=== PATIENT | male | born 1950 | race Caucasian/White ===

== ENCOUNTER 2023-05-29 08:59 | Observation (INO) | payer MEDICARE ==
[2023-05-19 11:18] LABS: Hematocrit 40.7 % (38.8-50.0); Hemoglobin 12.9 g/dL (13.5-17.5); Mean Corpuscular HGB CONC 31.7 g/dL (32.0-36.0); Mean Corpuscular Hemoglobin 28.7 pg (27.0-33.0); Mean Corpuscular Volume 90.6 fl (81.2-95.1); Mean Platelet Volume 10.1 fl (7.4-10.4); Platelet Count 155 10x3/uL (150-450); RBC Distribution Width 14.3 % (11.5-14.5); Red Blood Cell (RBC) Count 4.49 10x6/uL (4.32-5.72); White Blood Cell (WBC) Count 7.8 10x3/uL (3.5-10.5)
[2023-05-19 11:46] LABS: Anion Gap 16 mmol/L (10-20); BUN (Urea Nitrogen) 22 mg/dL (8.4-25.7); Calc. Creatinine Clearance 111 mL/min (70-130); Calcium 8.9 mg/dL (7.8-10.44); Carbon Dioxide 24 mmol/L (23-31); Chloride 106 mmol/L (98-107); Estimated GFR 71; Glucose 144 mg/dL (83-110); INR-International Normal Ratio 1.3; Potassium 4.1 mmol/L (3.5-5.1); Prothrombin Time 14.1 sec (9.5-12.1); Sodium 142 mmol/L (136-145)
[2023-05-29] MEDS ORDERED: Heparin 25,000 units/D5W 500 ML ONE (10:07)
[2023-05-29] MEDS ORDERED: Protamine Sulfate 50 MG/5 ML VIAL ONE (10:07)
[2023-05-29] MEDS ORDERED: Heparin 10,000 UNITS/ 10 ML VIAL ONE (10:07)
[2023-05-29] MEDS ORDERED: Dehydrated Alcohol 99% 5 ML VIAL ONE (10:10)
[2023-05-29] MEDS ORDERED: Phenylephrine 10 MG/ML VIAL ONE (11:58)
[2023-05-29] MEDS ORDERED: fentaNYL PF 100 MCG/2 ML SYRINGE ONE (11:58)
[2023-05-29] MEDS ORDERED: Dexamethasone 20 MG/5 ML VIAL ONE (12:11)
[2023-05-29] MEDS ORDERED: PROPOFOL 200 MG/20 ML VIAL ONE (12:11)
[2023-05-29] MEDS ORDERED: Ketorolac Tromethamine 30 MG/ML VIAL ONE (12:11)
[2023-05-29] MEDS ORDERED: Ondansetron PF 4 MG/2 ML Vial ONE (12:11)
[2023-05-29] MEDS ORDERED: Rocuronium Bromide 10 MG/ML (10ML VIAL) ONE (12:11)
[2023-05-29] MEDS ORDERED: SUGAMMADEX SODIUM 200 MG/2 ML VIAL ONE (14:51)
[2023-05-29] MEDS ORDERED: OZEMPIC SC PRN (16:23)
[2023-05-29] MEDS ORDERED: Rivaroxaban 10 MG TAB PO SCH (17:00)
[2023-05-29 21:10] VITALS: BMI 39.4
[2023-05-29] MEDS: Glimepiride 4 MG TAB PO SCH (21:32)
[2023-05-29] MEDS: metFORMIN 500 MG TAB PO SCH (21:32)
[2023-05-30] MEDS: Glimepiride 4 MG TAB PO SCH (08:19)
[2023-05-30] MEDS: metFORMIN 500 MG TAB PO SCH (08:20)
[2023-05-30 08:36] VITALS: BP 126/58; TEMP 98.1
[2023-05-30] MEDS ORDERED: Atorvastatin Calcium 40 MG TAB PO SCH (09:00)
[2023-05-30] MEDS ORDERED: Aspirin 81 mg Enteric Coated Tablet PO SCH (09:00)
[2023-05-30] MEDS ORDERED: Empagliflozin 25 MG TAB PO SCH (09:00)
[2023-05-30] MEDS ORDERED: Losartan 25 MG TAB PO SCH (09:00)
== END 2023-05-30 11:30 | disposition home or self-care (01) ==
LOC: SDC 08:59 → 2SW 15:43
PROVIDERS: ADMIT Internal Medicine Cardiovascular Disease; ATTEND Internal Medicine Cardiovascular Disease
PROC: B246ZZ4 Ultrasonography of Right and Left Heart, Transesophageal (ICD-10-PCS; principal; 2023-05-29)
DX: I48.19 Other persistent atrial fibrillation (principal); I10 Essential (primary) hypertension; I73.9 Peripheral vascular disease, unspecified; I89.0 Lymphedema, not elsewhere classified; E11.319 Type 2 diabetes mellitus with unspecified diabetic retinopathy without macular edema; E78.5 Hyperlipidemia, unspecified; I65.29 Occlusion and stenosis of unspecified carotid artery; Z79.01 Long term (current) use of anticoagulants; Z92.89 Personal history of other medical treatment; Z79.82 Long term (current) use of aspirin; Z79.84 Long term (current) use of oral hypoglycemic drugs; Z79.899 Other long term (current) drug therapy
CPT/HCPCS: 80048; 82962; 85027; 85347 ×2; 85610; 93005; 93312; 93656; 93657; C1732; C1759; C1760; C1769 ×2; C1887; C1894 ×5; C2630; 36416; J1100; J1644; J1885; J2370; J2405; J2704; J2720

== ENCOUNTER 2023-07-10 09:29 | Day surgery (SDC) | payer MEDICARE, BC ==
[2023-07-09 12:39] VITALS: BMI 38.6
[2023-07-10] MEDS ORDERED: PROPOFOL 200 MG/20 ML VIAL ONE (10:59)
[2023-07-10] MEDS ORDERED: Lidocaine 1% PF 5 ML VIAL ONE (10:59)
== END 2023-07-10 12:12 | disposition home or self-care (01) ==
LOC: SDC 09:29
PROVIDERS: ATTEND Internal Medicine Cardiovascular Disease
PROC: 5A2204Z Restoration of Cardiac Rhythm, Single (ICD-10-PCS; principal; 2023-07-10)
DX: I48.19 Other persistent atrial fibrillation (principal); I44.1 Atrioventricular block, second degree; I10 Essential (primary) hypertension; I73.9 Peripheral vascular disease, unspecified; I25.10 Atherosclerotic heart disease of native coronary artery without angina pectoris; E11.319 Type 2 diabetes mellitus with unspecified diabetic retinopathy without macular edema; Z79.82 Long term (current) use of aspirin; Z79.84 Long term (current) use of oral hypoglycemic drugs; Z79.899 Other long term (current) drug therapy
CPT/HCPCS: 92960; 93005; 93010; J2704

== ENCOUNTER 2023-10-23 05:33 | Observation (INO) | payer MEDICARE, BC ==
[2023-10-23] MEDS ORDERED: SUGAMMADEX SODIUM 200 MG/2 ML VIAL ONE (06:47)
[2023-10-23] MEDS ORDERED: Sevoflurane 250 ML INH ANEST BOTTLE ONE (06:51)
[2023-10-23] MEDS ORDERED: Heparin 10,000 UNITS/ 10 ML VIAL ONE (06:52)
[2023-10-23] MEDS ORDERED: Protamine Sulfate 50 MG/5 ML VIAL ONE ×2 (06:52→06:53)
[2023-10-23] MEDS ORDERED: Heparin 25,000 units/D5W 500 ML ONE (06:53)
[2023-10-23] MEDS ORDERED: fentaNYL 50 mcg/mL 1 mL Vial ONE (06:57)
[2023-10-23] MEDS ORDERED: PHENYLEPHRINE-NS 100 MCG/ML 10 ML SYRINGE ONE (07:31)
[2023-10-23] MEDS ORDERED: Lidocaine 1% PF 5 ML VIAL ONE (07:31)
[2023-10-23] MEDS ORDERED: ePHEDrine Sulfate 50 MG/10 ML VIAL ONE (07:31)
[2023-10-23] MEDS ORDERED: Ondansetron PF 4 MG/2 ML Vial ONE (07:31)
[2023-10-23] MEDS ORDERED: Rocuronium Bromide 10 MG/ML (10ML VIAL) ONE (07:31)
[2023-10-23] MEDS ORDERED: PROPOFOL 200 MG/20 ML VIAL ONE (07:31)
[2023-10-23] MEDS ORDERED: Acetaminophen/Codeine 30-300mg Tablet PO PRN ×2 (11:30)
[2023-10-23] MEDS ORDERED: HYDROcodone/Acetaminophen 5/325 mg Tablet PO PRN ×2 (11:30)
[2023-10-23] MEDS ORDERED: Acetaminophen 325 MG TAB PO PRN (11:30)
[2023-10-23 16:36] VITALS: BMI 40.0
[2023-10-23] MEDS ORDERED: Rivaroxaban 10 MG TAB PO SCH (17:00)
[2023-10-23] MEDS: metFORMIN 500 MG TAB PO SCH (17:29)
[2023-10-23] MEDS ORDERED: Atorvastatin Calcium 40 MG TAB PO SCH (21:00)
[2023-10-23] MEDS ORDERED: Aspirin 81 mg Enteric Coated Tablet PO SCH (21:00)
[2023-10-24] MEDS ORDERED: Glimepiride 4 MG TAB PO SCH (07:30)
[2023-10-24 08:40] VITALS: BP 118/67; TEMP 98.6
[2023-10-24] MEDS ORDERED: Empagliflozin 25 MG TAB PO SCH (09:00)
[2023-10-24] MEDS ORDERED: Losartan 25 MG TAB PO SCH (09:00)
[2023-10-24] MEDS: metFORMIN 500 MG TAB PO SCH (10:15)
[2023-10-25] MEDS ORDERED: SEMAGLUTIDE 2 MG/0.75 ML SC SCH (09:00)
[2023-10-26] MEDS ORDERED: FLU VACC QS2023(65UP)/MF59C/PF 60 MCG/0.5 ML SYRINGE IM ONE (09:00)
== END 2023-10-24 10:35 | disposition home or self-care (01) ==
LOC: SDC 05:33 → 2NO 16:32
PROVIDERS: ADMIT Internal Medicine Cardiovascular Disease; ATTEND Internal Medicine Cardiovascular Disease
PROC: 02583ZZ Destruction of Conduction Mechanism, Percutaneous Approach (ICD-10-PCS; principal; 2023-10-23)
PROC: 02K83ZZ Map Conduction Mechanism, Percutaneous Approach (ICD-10-PCS; 2023-10-23)
DX: I48.19 Other persistent atrial fibrillation (principal); I44.1 Atrioventricular block, second degree; I10 Essential (primary) hypertension; I73.9 Peripheral vascular disease, unspecified; I48.0 Paroxysmal atrial fibrillation; I63.239 Cerebral infarction due to unspecified occlusion or stenosis of unspecified carotid artery; E11.319 Type 2 diabetes mellitus with unspecified diabetic retinopathy without macular edema; Z79.82 Long term (current) use of aspirin; Z79.84 Long term (current) use of oral hypoglycemic drugs; Z79.899 Other long term (current) drug therapy; Z79.85 Long-term (current) use of injectable non-insulin antidiabetic drugs
CPT/HCPCS: 85347 ×2; 93005; 93312; 93655; 93656; 93657; C1732; C1759; C1760; C1894 ×5; C2630; J3010; 93010; J1644; J2405; J2704; J2720

== ENCOUNTER 2025-08-25 13:28 | Inpatient (IN) | payer MEDICARE, BC ==
[2025-08-25 14:09] LABS: #Basophils 0.03 10x3/uL (0.0-0.2); #Eosinophils 0.12 10x3/uL (0.0-0.7); #Monocytes 0.78 10x3/uL (0.11-0.59); #Neutrophils 4.28 10x3/uL (1.40-6.50); %Basophils 0.5 % (0.0-1.0); %Eosinophils 1.8 % (0.0-10.0); %Lymphocytes 20.8 % (21.0-51.0); %Monocytes 11.8 % (0.0-10.0); %Neutrophils 64.8 % (42.0-75.0); Hematocrit 44.1 % (42.0-52.0); Hemoglobin 13.8 g/dL (14.0-18.0); Mean Corpuscular Hemoglobin 28.1 pg (27.0-31.0); Mean Corpuscular Volume 89.8 fL (78.0-98.0); Platelet Count 206 10x3/uL (130-400); Red Blood Cell (RBC) Count 4.91 mill/uL (4.70-6.10); White Blood Cell (WBC) Count 6.60 10x3/uL (4.8-10.8)
[2025-08-25 14:24] LABS: ALT (SGPT) 14 U/L (Less than 45); AST (SGOT) 27 U/L (11-34); Albumin 4.1 g/dL (3.1-4.5); Alkaline Phosphatase 88 U/L (40-110); Anion Gap 17 mmol/L (10-20); BUN (Urea Nitrogen) 19 mg/dL (8.4-25.7); Bilirubin, Total 1.0 mg/dL (0.3-1.2); Calc. Creatinine Clearance 0 mL/min (70-130); Calcium 9.5 mg/dL (7.8-10.44); Carbon Dioxide 21 mmol/L (23-31); Chloride 106 mmol/L (98-107); Globulin 3.4 g/dL (2.4-3.5); Glucose 97 mg/dL (83-110); Potassium 4.3 mmol/L (3.5-5.1); Sodium 140 mmol/L (136-145)
[2025-08-25] MEDS ORDERED: Glucagon 1 MG/ML KIT IM PRN (17:00)
[2025-08-25] MEDS ORDERED: Dextrose 50% Abboject 50 ML SYRINGE SLOW IVP PRN (17:00)
[2025-08-25 17:10] VITALS: BMI 37.2
[2025-08-25 17:44] LABS: Free T4 (Free Thyroxine) 1.25 ng/dL (0.70-1.48); Thyroid Stimulating Hormone 2.2438 uIU/mL (0.35-4.94)
[2025-08-25] MEDS ORDERED: hydrALAZINE 20 MG/ML VIAL SLOW IVP PRN (19:12)
[2025-08-25] MEDS: Famotidine 20 MG TAB PO SCH (21:00)
[2025-08-26 03:46] LABS: #Basophils 0.03 10x3/uL (0.0-0.2); #Eosinophils 0.15 10x3/uL (0.0-0.7); #Monocytes 0.86 10x3/uL (0.11-0.59); #Neutrophils 3.70 10x3/uL (1.40-6.50); %Basophils 0.5 % (0.0-1.0); %Eosinophils 2.5 % (0.0-10.0); %Lymphocytes 21.7 % (21.0-51.0); %Monocytes 14.2 % (0.0-10.0); %Neutrophils 60.9 % (42.0-75.0); Hematocrit 39.0 % (42.0-52.0); Hemoglobin 12.2 g/dL (14.0-18.0); Mean Corpuscular Hemoglobin 28.0 pg (27.0-31.0); Mean Corpuscular Volume 89.7 fL (78.0-98.0); Platelet Count 203 10x3/uL (130-400); Red Blood Cell (RBC) Count 4.35 mill/uL (4.70-6.10); White Blood Cell (WBC) Count 6.07 10x3/uL (4.8-10.8)
[2025-08-26 04:05] LABS: Anion Gap 12 mmol/L (10-20); BUN (Urea Nitrogen) 21 mg/dL (8.4-25.7); Calc. Creatinine Clearance 103 mL/min (70-130); Calcium 8.7 mg/dL (7.8-10.44); Carbon Dioxide 25 mmol/L (23-31); Chloride 106 mmol/L (98-107); Glucose 130 mg/dL (83-110); Potassium 3.9 mmol/L (3.5-5.1); Sodium 139 mmol/L (136-145)
[2025-08-26] MEDS: Mupirocin 1 GM TUBE NASAL DECOLONIZATION NASAL SCH (20:05)
[2025-08-27 03:35] LABS: #Basophils 0.03 10x3/uL (0.0-0.2); #Eosinophils 0.14 10x3/uL (0.0-0.7); #Monocytes 0.78 10x3/uL (0.11-0.59); #Neutrophils 3.51 10x3/uL (1.40-6.50); %Basophils 0.5 % (0.0-1.0); %Eosinophils 2.4 % (0.0-10.0); %Lymphocytes 23.9 % (21.0-51.0); %Monocytes 13.3 % (0.0-10.0); %Neutrophils 59.7 % (42.0-75.0); Hematocrit 38.4 % (42.0-52.0); Hemoglobin 11.7 g/dL (14.0-18.0); Mean Corpuscular Hemoglobin 27.7 pg (27.0-31.0); Mean Corpuscular Volume 91.0 fL (78.0-98.0); Platelet Count 205 10x3/uL (130-400); Red Blood Cell (RBC) Count 4.22 mill/uL (4.70-6.10); White Blood Cell (WBC) Count 5.87 10x3/uL (4.8-10.8)
[2025-08-27 03:57] LABS: Anion Gap 13 mmol/L (10-20); Chloride 107 mmol/L (98-107); Potassium 3.8 mmol/L (3.5-5.1); Sodium 141 mmol/L (136-145)
[2025-08-27 04:39] LABS: Carbon Dioxide 24 mmol/L (23-31)
[2025-08-27 04:44] LABS: BUN (Urea Nitrogen) 18 mg/dL (8.4-25.7); Calc. Creatinine Clearance 95 mL/min (70-130); Calcium 8.8 mg/dL (7.8-10.44); Glucose 132 mg/dL (83-110)
[2025-08-27 15:29] LABS: Magnesium 1.9 mg/dL (1.6-2.6)
[2025-08-27] MEDS: Magnesium 2 GM/50 ML(in water) 2 GM in Premix 1 BAG IVPB SCH (19:58)
[2025-08-28 03:21] LABS: #Basophils 0.03 10x3/uL (0.0-0.2); #Eosinophils 0.15 10x3/uL (0.0-0.7); #Monocytes 0.96 10x3/uL (0.11-0.59); #Neutrophils 3.48 10x3/uL (1.40-6.50); %Basophils 0.5 % (0.0-1.0); %Eosinophils 2.5 % (0.0-10.0); %Lymphocytes 22.3 % (21.0-51.0); %Monocytes 16.1 % (0.0-10.0); %Neutrophils 58.4 % (42.0-75.0); Hematocrit 39.5 % (42.0-52.0); Hemoglobin 12.1 g/dL (14.0-18.0); Mean Corpuscular Hemoglobin 27.8 pg (27.0-31.0); Mean Corpuscular Volume 90.6 fL (78.0-98.0); Platelet Count 201 10x3/uL (130-400); Red Blood Cell (RBC) Count 4.36 mill/uL (4.70-6.10); White Blood Cell (WBC) Count 5.96 10x3/uL (4.8-10.8)
[2025-08-28 04:05] LABS: Anion Gap 14 mmol/L (10-20); BUN (Urea Nitrogen) 19 mg/dL (8.4-25.7); Calc. Creatinine Clearance 104 mL/min (70-130); Calcium 8.9 mg/dL (7.8-10.44); Carbon Dioxide 24 mmol/L (23-31); Chloride 107 mmol/L (98-107); Glucose 110 mg/dL (83-110); Potassium 3.7 mmol/L (3.5-5.1); Sodium 141 mmol/L (136-145)
[2025-08-28] MEDS: PNEUMOC 20-VAL CONJ-DIP CRM/PF 0.5 ML SYRINGE IM ONE (07:53)
[2025-08-29 03:01] LABS: #Basophils 0.03 10x3/uL (0.0-0.2); #Eosinophils 0.13 10x3/uL (0.0-0.7); #Monocytes 0.94 10x3/uL (0.11-0.59); #Neutrophils 3.41 10x3/uL (1.40-6.50); %Basophils 0.5 % (0.0-1.0); %Eosinophils 2.2 % (0.0-10.0); %Lymphocytes 23.4 % (21.0-51.0); %Monocytes 15.9 % (0.0-10.0); %Neutrophils 57.7 % (42.0-75.0); Hematocrit 40.2 % (42.0-52.0); Hemoglobin 12.5 g/dL (14.0-18.0); Mean Corpuscular Hemoglobin 28.2 pg (27.0-31.0); Mean Corpuscular Volume 90.5 fL (78.0-98.0); Platelet Count 189 10x3/uL (130-400); Red Blood Cell (RBC) Count 4.44 mill/uL (4.70-6.10); White Blood Cell (WBC) Count 5.91 10x3/uL (4.8-10.8)
[2025-08-29 03:41] LABS: Anion Gap 14 mmol/L (10-20); BUN (Urea Nitrogen) 25 mg/dL (8.4-25.7); Calc. Creatinine Clearance 108 mL/min (70-130); Calcium 8.5 mg/dL (7.8-10.44); Carbon Dioxide 23 mmol/L (23-31); Chloride 109 mmol/L (98-107); Glucose 125 mg/dL (83-110); Potassium 4.0 mmol/L (3.5-5.1); Sodium 142 mmol/L (136-145)
[2025-08-29] MEDS ORDERED: CEFAZOLIN 2 GM VIAL ONE (06:41)
[2025-08-29] MEDS ORDERED: Lidocaine 1% (PF) 30 ML VIAL ONE (06:41)
[2025-08-29] MEDS ORDERED: CEFAZOLIN 1 GM VIAL ONE (06:41)
[2025-08-29] MEDS: Famotidine/PF 20 mg/2ml Vial ONE (07:22)
[2025-08-29] MEDS: Acetaminophen 325 MG TAB PO PRN (15:19)
[2025-08-30 04:55] LABS: #Basophils Less than 0.03 10x3/uL (0.0-0.2); #Eosinophils 0.11 10x3/uL (0.0-0.7); #Monocytes 0.87 10x3/uL (0.11-0.59); #Neutrophils 4.01 10x3/uL (1.40-6.50); %Basophils 0.3 % (0.0-1.0); %Eosinophils 1.8 % (0.0-10.0); %Lymphocytes 18.6 % (21.0-51.0); %Monocytes 14.1 % (0.0-10.0); %Neutrophils 65.0 % (42.0-75.0); Hematocrit 40.5 % (42.0-52.0); Hemoglobin 12.8 g/dL (14.0-18.0); Mean Corpuscular Hemoglobin 28.0 pg (27.0-31.0); Mean Corpuscular Volume 88.6 fL (78.0-98.0); Platelet Count 197 10x3/uL (130-400); Red Blood Cell (RBC) Count 4.57 mill/uL (4.70-6.10); White Blood Cell (WBC) Count 6.17 10x3/uL (4.8-10.8)
[2025-08-30 05:09] LABS: Anion Gap 14 mmol/L (10-20); BUN (Urea Nitrogen) 22 mg/dL (8.4-25.7); Calc. Creatinine Clearance 126 mL/min (70-130); Calcium 8.8 mg/dL (7.8-10.44); Carbon Dioxide 23 mmol/L (23-31); Chloride 110 mmol/L (98-107); Glucose 117 mg/dL (83-110); Potassium 3.6 mmol/L (3.5-5.1); Sodium 143 mmol/L (136-145)
[2025-08-30 11:49] VITALS: BP 168/74; TEMP 98.9
== END 2025-08-30 13:32 | disposition home or self-care (01) | DRG 244 ==
LOC: ERS 13:28 → CCU 15:18 → 2NO 08-29 12:42
PROVIDERS: ADMIT Hospitalist; ATTEND Internal Medicine
PROC: 3E0234Z Introduction of Serum, Toxoid and Vaccine into Muscle, Percutaneous Approach (ICD-10-PCS; 2025-08-25)
PROC: 0JH606Z Insertion of Pacemaker, Dual Chamber into Chest Subcutaneous Tissue and Fascia, Open Approach (ICD-10-PCS; principal; 2025-08-29)
PROC: 02H63JZ Insertion of Pacemaker Lead into Right Atrium, Percutaneous Approach (ICD-10-PCS; 2025-08-29)
PROC: 02HK3JZ Insertion of Pacemaker Lead into Right Ventricle, Percutaneous Approach (ICD-10-PCS; 2025-08-29)
DX: I44.2 Atrioventricular block, complete (principal); E11.9 Type 2 diabetes mellitus without complications; I48.91 Unspecified atrial fibrillation; R00.1 Bradycardia, unspecified; I10 Essential (primary) hypertension; E78.5 Hyperlipidemia, unspecified; E87.70 Fluid overload, unspecified; G47.33 Obstructive sleep apnea (adult) (pediatric); Z98.890 Other specified postprocedural states; Z79.899 Other long term (current) drug therapy; Z79.84 Long term (current) use of oral hypoglycemic drugs; Z79.82 Long term (current) use of aspirin; Z23 Encounter for immunization
CPT/HCPCS: 0439T; 33208; 36415; 36416; 71045; 80048; 80053; 83735; 83880; 84439; 84443; 84481; 84484; 85025; 93005; 93306; 93798; 94660; 94760; 99152; 99153; C1785; C1898; J0690; J1308; J1580; J1650; J1815; J2003; J2250; J3475; Q9957